=== PATIENT | male | born 1965 | race Caucasian/White ===

== ENCOUNTER 2020-12-30 09:17 | Outpatient (REF) | payer BC, SELFPAY ==
[2020-12-30 10:30] LABS: Creatinine Urine 31.45 mg/dL; Microalbumin Urine < 5.0 mg/L
[2020-12-30 10:31] LABS: Alanine Aminotransferase 47 U/L (0-40); Anion Gap 16 (12-20); Blood Urea Nitrogen 11 mg/dL (9-16); Carbon Dioxide 25 mmol/L (22-29); Chloride 105 mmol/L (96-108); Cholesterol 109 mg/dL; Estimated Glomerular Filt Rate > 60; Glucose Fasting 112 mg/dL (60-99); HDL Cholesterol 33 mg/dL; LDL Cholesterol Calculated 56 mg/dl; Potassium 4.4 mmol/L (3.3-5.1); Sodium 142 mmol/L (135-145); Triglycerides 100 mg/dL
[2020-12-30 10:40] LABS: Estimated Average Glucose 105 mg/dL; Hemoglobin A1c % 5.3 %
== END 2020-12-30 09:18 | disposition home or self-care (01) ==
LOC: HO.10HDL 09:17
PROVIDERS: Absent Provider Internal Medicine Endocrinology, Diabetes & Metabolism; Visit Provider Family Medicine
DX: I10 Essential (primary) hypertension (principal); E78.00 Pure hypercholesterolemia, unspecified; Z79.899 Other long term (current) drug therapy
CPT/HCPCS: 36415; 80051; 80061; 82043; 82550; 82565; 82947; 83036; 84460; 84520

== ENCOUNTER 2021-06-24 08:17 | Outpatient (REF) | payer BC, SELFPAY ==
--- NOTE | ~2021-06-24 | US_ITS ---
EXAMINATION: US RETROPERITONEAL COMPLETE (RENAL) CLINICAL INFORMATION: History of stones. COMPARISON: CT abdomen and pelvis 09/12/2010. TECHNIQUE: Real-time imaging of the kidneys and bladder. FINDINGS: RIGHT KIDNEY: 12.5 x 6.3 x 7.3 cm (SAG x AP x TRV). The kidney is normal in size, contour, and echogenicity. Renal cortical thickness is normal. No focal parenchymal lesions or hydronephrosis. There is an echogenic stone measuring 0.19 x 0.21 x 0.18 cm in mid pole right kidney LEFT KIDNEY: 11.3 x 6.7 x 5.0 cm (SAG x AP x TRV). The kidney is normal in size, contour, and echogenicity. Renal cortical thickness is normal. No calculi or focal parenchymal lesions. No hydronephrosis. BLADDER: Well distended and normal. Bilateral ureteral jets are demonstrated. Prevoid bladder volume is 227 mL. Postvoid bladder volume is 15.4 mL. Prostate volume 35.8 mL. US/US retroperitoneal comp IMPRESSION: Nonobstructive echogenic stone mid pole right kidney. No caliectasis or hydronephrosis in either kidney. Small postvoid residual bladder volume.
== END 2021-06-24 08:18 | disposition home or self-care (01) ==
LOC: HO.HMGCX 08:17
PROVIDERS: PCP Family Medicine; Visit Provider Family Medicine
DX: N20.0 Calculus of kidney (principal)
CPT/HCPCS: 76770

== ENCOUNTER 2021-09-09 09:46 | Outpatient (REF) | payer BC, SELFPAY ==
[2021-09-09 15:15] LABS: Alanine Aminotransferase 44 U/L (0-40); Anion Gap 12 (12-20); Aspartate Amino Transferase 23 U/L (5-37); Blood Urea Nitrogen 12 mg/dL (9-16); Carbon Dioxide 31 mmol/L (22-29); Chloride 103 mmol/L (96-108); Estimated Glomerular Filt Rate > 60; Potassium 4.8 mmol/L (3.3-5.1); Sodium 141 mmol/L (135-145)
== END 2021-09-09 09:47 | disposition home or self-care (01) ==
LOC: HO.10HDL 09:46
PROVIDERS: Absent Provider Internal Medicine Endocrinology, Diabetes & Metabolism; Visit Provider Family Medicine
DX: E78.00 Pure hypercholesterolemia, unspecified (principal); I10 Essential (primary) hypertension
CPT/HCPCS: 36415; 80051; 82550; 82565; 84450; 84460; 84520

== ENCOUNTER 2022-03-18 08:55 | Outpatient (REF) | payer BC, SELFPAY ==
[2022-03-18 10:50] LABS: Estimated Average Glucose 108 mg/dL; Hemoglobin A1c % 5.4 %
[2022-03-18 11:01] LABS: Alanine Aminotransferase 56 U/L (0-40); Anion Gap 13 (12-20); Blood Urea Nitrogen 14 mg/dL (9-16); Carbon Dioxide 26 mmol/L (22-29); Chloride 100 mmol/L (96-108); Estimated Glomerular Filt Rate > 60; Glucose Fasting 104 mg/dL (60-99); Potassium 4.4 mmol/L (3.3-5.1); Sodium 135 mmol/L (135-145)
[2022-03-18 11:27] LABS: Creatinine Urine 13.26 mg/dL; Microalbumin Urine < 5.0 mg/L
== END 2022-03-18 08:56 | disposition home or self-care (01) ==
LOC: HO.10HDL 08:55
PROVIDERS: Visit Provider Family Medicine
DX: I10 Essential (primary) hypertension (principal); E11.9 Type 2 diabetes mellitus without complications; E78.00 Pure hypercholesterolemia, unspecified; Z79.899 Other long term (current) drug therapy
CPT/HCPCS: 36415; 80051; 82043; 82550; 82565; 82947; 83036; 84460; 84520

== ENCOUNTER 2022-09-10 08:32 | Outpatient (REF) | payer BC, SELFPAY ==
[2022-09-10 10:36] LABS: Estimated Average Glucose 114 mg/dL; Hemoglobin A1c % 5.6 %
[2022-09-10 10:40] LABS: Anion Gap 12 (12-20); Blood Urea Nitrogen 14 mg/dL (9-16); Carbon Dioxide 30 mmol/L (22-29); Chloride 102 mmol/L (96-108); Estimated Glomerular Filt Rate > 60; Glucose Fasting 121 mg/dL (60-99); Sodium 139 mmol/L (135-145)
== END 2022-09-10 08:33 | disposition home or self-care (01) ==
LOC: HO.10HDL 08:32
PROVIDERS: Visit Provider Family Medicine
DX: I10 Essential (primary) hypertension (principal); E11.9 Type 2 diabetes mellitus without complications
CPT/HCPCS: 36415; 80051; 82565; 82947; 83036; 84520

== ENCOUNTER 2023-03-15 09:07 | Outpatient (REF) | payer BC, SELFPAY | END 2023-03-15 09:08 | disposition home or self-care (01) | LOC: HO.HMGCLDS 09:07 | PROVIDERS: PCP Family Medicine; Visit Provider Family Medicine | DX: I10 Essential (primary) hypertension (principal) | CPT/HCPCS: 36415; 80051; 82565; 84520 ==

== ENCOUNTER 2023-07-14 07:40 | Outpatient (REF) | payer BC, SELFPAY ==
[2023-07-14 11:45] LABS: Estimated Average Glucose 103 mg/dL; Hemoglobin A1c % 5.2 % (<6.0)
[2023-07-14 11:58] LABS: Alanine Aminotransferase 46 U/L (0-40); Aspartate Amino Transferase 27 U/L (5-37); Cholesterol 111 mg/dL (<200); Glucose Fasting 105 mg/dL (60-99); HDL Cholesterol 32 mg/dL (>40); LDL Cholesterol Calculated 56 mg/dL (<100); Triglycerides 116 mg/dL (<150)
== END 2023-07-14 07:41 | disposition home or self-care (01) ==
LOC: HO.HMGCLDS 07:40
PROVIDERS: PCP Family Medicine; Visit Provider Family Medicine
DX: E11.9 Type 2 diabetes mellitus without complications (principal); E78.00 Pure hypercholesterolemia, unspecified; Z79.899 Other long term (current) drug therapy
CPT/HCPCS: 36415; 80061; 82550; 82947; 83036; 84450; 84460

== ENCOUNTER 2024-03-04 06:42 | Outpatient (REF) | payer BC, SELFPAY ==
[2024-03-04 11:41] LABS: Estimated Average Glucose 108 mg/dL; Hemoglobin A1C 148.5934 umol/L; Hemoglobin A1c % 5.4 % (<6.0)
[2024-03-04 11:45] LABS: Anion Gap 13 (12-20); Blood Urea Nitrogen 13 mg/dL (9-16); Carbon Dioxide 24 mmol/L (22-29); Chloride 105 mmol/L (96-108); Estimated Glomerular Filt Rate > 60; Potassium 4.2 mmol/L (3.3-5.1); Sodium 138 mmol/L (135-145)
[2024-03-04 12:26] LABS: Creatinine Urine 48.77 mg/dL; Microalbumin Urine < 5.0 mg/L
== END 2024-03-04 06:43 | disposition home or self-care (01) ==
LOC: HO.HMGCLDS 06:42
PROVIDERS: PCP Family Medicine; Visit Provider Family Medicine
DX: I10 Essential (primary) hypertension (principal); E11.9 Type 2 diabetes mellitus without complications
CPT/HCPCS: 36415; 80051; 82043; 82565; 82570; 83036; 84520

== ENCOUNTER 2024-05-12 06:20 | Day surgery (SDC) | payer BC, SELFPAY ==
[2024-05-10 12:34] VITALS: BMI 29.6
--- NOTE | 2024-05-10 14:00 | P.CONAN_ITS ---
Documented by User: Aisha Suarez NP 05/10/24 14:01 HPI - Anesthesia Eval Consult details Narrative: 58yo M for Colonoscopy Anesthesia Pre-Procedure Meds Is the patient on any of the following meds?: GLP1/DPP4 and SGLT2 Inhib PMFSH Past Medical History Medical History Skin cancer HTN (hypertension) Renal calculus Diabetes Elevated cholesterol Surgical History Surgical History Hx of eye surgery H/O colonoscopy Social History Social History (Updated 05/10/24 @ 12:34 by Joy Grayson RN) Household Members: Spouse Patient Tobacco Use Status: Never used Tobacco Use of substances other than those prescribed or required for medical reasons: No Are you DNR?: No Advance Directives: No Advance Directives Information Provided: Yes Recently lost weight without trying: No Nutrition Risks: No Nutritional Risk Poor oral hygiene: No Meds Allergies Allergy/AdvReac Type Severity Reaction Status Date / Time No Known Allergies Allergy Verified 05/12/24 06:34 Home Medications ?Medication ?Instructions ?Recorded ?Confirmed ?Last Taken ?Type atorvastatin 10 mg tablet 10 mg PO DAILY 05/10/24 05/12/24 05/12/24 History empagliflozin 10 mg tablet 10 mg PO BEDTIME 05/10/24 05/12/24 05/09/24 History (Jardiance) lisinopril 20 mg tablet 20 mg PO DAILY 05/10/24 05/12/24 05/12/24 History metformin 500 mg tablet 1,000 mg PO BID 05/10/24 05/12/24 05/12/24 History metoprolol succinate 25 mg 25 mg PO BEDTIME 05/10/24 05/12/24 05/12/24 History tablet,extended release 24 hr tirzepatide 5 mg/0.5 mL 0.5 mg subcut QWEEK 05/10/24 05/12/24 05/05/24 History subcutaneous pen injector (Maryjo) Exam Height,Weight and Vital Signs: Height 5 ft 10 in Weight 93.44 kg Assessment and Plan Assessment Anesthesia Assessment: Chart Reviewed Documented by User: Juvencio Kumar MD 05/12/24 07:26 [facility] Past Medical History Medical History Skin cancer HTN (hypertension) Renal calculus Diabetes Elevated cholesterol Family History Family history of problems with anesthesia: No Surgical History Surgical History Hx of eye surgery H/O colonoscopy History of Problems with Anesthesia: No Social History Social History (Updated 05/10/24 @ 12:34 by Joy Grayson RN) Household Members: Spouse Patient Tobacco Use Status: Never used Tobacco Use of substances other than those prescribed or required for medical reasons: No Are you DNR?: No Advance Directives: No Advance Directives Information Provided: Yes Recently lost weight without trying: No Nutrition Risks: No Nutritional Risk Poor oral hygiene: No Meds Allergies Allergy/AdvReac Type Severity Reaction Status Date / Time No Known Allergies Allergy Verified 05/12/24 06:34 Home Medications ?Medication ?Instructions ?Recorded ?Confirmed ?Last Taken ?Type atorvastatin 10 mg tablet 10 mg PO DAILY 05/10/24 05/12/24 05/12/24 History empagliflozin 10 mg tablet 10 mg PO BEDTIME 05/10/24 05/12/24 05/09/24 History (Jardiance) lisinopril 20 mg tablet 20 mg PO DAILY 05/10/24 05/12/24 05/12/24 History metformin 500 mg tablet 1,000 mg PO BID 05/10/24 05/12/24 05/12/24 History metoprolol succinate 25 mg 25 mg PO BEDTIME 05/10/24 05/12/24 05/12/24 History tablet,extended release 24 hr tirzepatide 5 mg/0.5 mL 0.5 mg subcut QWEEK 05/10/24 05/12/24 05/05/24 History subcutaneous pen injector (Gibranunjaro) Exam Airway Mallampati Class: II TM Dist: <=3cm Neck ROM: Full Loose/Missing/Broken Teeth: No Heart: ok Lungs: ok Assessment and Plan Assessment Anesthesia Assessment: Anesthesia Plan Discussed Final Anesthetic Review Family History of Problems with Anesthesia: No History of Problems with Anesthesia: No NPO: Yes ASA Class: II Final Preanesthetic Review: No Changes in Pt Med Stat, Meds/Allgs Chart Reviewed, Consent Obtained/Reviewed and Anes Risks/Benef Reviewed Patient Risk: Intermediate Procedure Risk: Low Anesthetic Plan Anesthetic Plan: MAC: and Agree w/ Assess. and Plan Disposition: Standard PACU
[2024-05-12 06:25] VITALS: BMI 27.3
[2024-05-12 06:46] VITALS: BP 104/73; PULSE 86; RESP 16; TEMP 36.5; O2SAT 96
[2024-05-12] MEDS: Lactated Ringers 1,000 ML 100 ML IVCONT (06:47)
[2024-05-12 06:54] LABS: Glucose, Whole Blood 94 mg/dL (60-115)
--- NOTE | 2024-05-12 07:27 | MHC.SHP ---
Pre-Procedural Eval Section A - 24 Hr Update-Section A only Date of Service: 05/12/24 Section B - Complete if H&P > 30 days Chief Complaint: screening Details of Present Illness: see H&P no changes Relevant Family History (Specify if Yes): No Present Medications: see Short Stay Collaborative assessment Medical History: No relevant PMH History of Previous Operations: Relevant previous surgery/procedure and date(s) Allergies: Allergies Allergy/AdvReac Type Severity Reaction Status Date / Time No Known Allergies Allergy Verified 05/12/24 06:34 Review of Systems Sugical H&P ROS: Negative: Constitution, Cardiovascular, Respiratory, Neurological, Psychiatric, Hem-Onc, Allergic/Immunologic, Gastrointestinal, Genitourinary, Musculoskeletal, Integumentary, Endocrine and Eyes/Ears/Nose/Throat Exam Surgical H&P Exam: Normal: HEENT, Normal: Heart, Normal: Lungs, Normal: Extremities, Normal: Abdomen, Normal: Skin and Normal: Neurological Plan Diagnosis/Plan: Unchanged I have reviewed the history and physical and performed a pertinent physical examination on my patient. No changes have occurred unless specified. Time Spent With Patient Time: Total time managing care of this patient today ____ minutes.
[2024-05-12 08:05] VITALS: BP 85/59; PULSE 91; RESP 18; TEMP 36.4; O2SAT 95
[2024-05-12 08:24] VITALS: BP 97/66; PULSE 90; RESP 16; TEMP 36.5; O2SAT 96
--- NOTE | 2024-05-12 08:34 | P.CONAN_ITS ---
HPI - Anesthesia Eval Consult details Narrative: colon screen [facility] Past Medical History Medical History Skin cancer HTN (hypertension) Renal calculus Diabetes Elevated cholesterol Family History Family history of problems with anesthesia: No Surgical History Surgical History Hx of eye surgery H/O colonoscopy History of Problems with Anesthesia: No Social History Social History Household Members: Spouse Patient Tobacco Use Status: Never used Tobacco Use of substances other than those prescribed or required for medical reasons: No Are you DNR?: No Advance Directives: No Advance Directives Information Provided: Yes Recently lost weight without trying: No Nutrition Risks: No Nutritional Risk Poor oral hygiene: No Meds Allergies Allergy/AdvReac Type Severity Reaction Status Date / Time No Known Allergies Allergy Verified 05/12/24 06:34 Active Medications: Current Medications Lactated Ringer's (Lr) 1,000 mls @ 100 mls/hr IVCONT .Q10H REGINALD Last Admin: 05/12/24 06:47 Dose: 100 mls/hr Home Medications ?Medication ?Instructions ?Recorded ?Confirmed ?Last Taken ?Type atorvastatin 10 mg tablet 10 mg PO DAILY 05/10/24 05/12/24 05/12/24 History empagliflozin 10 mg tablet 10 mg PO BEDTIME 05/10/24 05/12/24 05/09/24 History (Jardiance) lisinopril 20 mg tablet 20 mg PO DAILY 05/10/24 05/12/24 05/12/24 History metformin 500 mg tablet 1,000 mg PO BID 05/10/24 05/12/24 05/12/24 History metoprolol succinate 25 mg 25 mg PO BEDTIME 05/10/24 05/12/24 05/12/24 History tablet,extended release 24 hr tirzepatide 5 mg/0.5 mL 0.5 mg subcut QWEEK 05/10/24 05/12/24 05/05/24 History subcutaneous pen injector (Gibranundomingoro) Exam Height,Weight and Vital Signs: Height 5 ft 10 in Weight 86.183 kg Last Vital Signs Temp 97.7 F 05/12/24 08:24 Pulse 90 05/12/24 08:24 Resp 16 05/12/24 08:24 BP 97/66 05/12/24 08:24 Pulse Ox 96 05/12/24 08:24 O2 Del Method Room Air 05/12/24 08:24 Pertinent Lab Results Pertinent Lab Results: Laboratory Tests 05/12/24 06:49 POC Glucose 94 Airway Mallampati Class: II TM Dist: >3cm Neck ROM: Full Heart: rrr Lungs: cta Assessment and Plan Assessment Anesthesia Assessment: Anesthesia Plan Discussed Final Anesthetic Review Family History of Problems with Anesthesia: No History of Problems with Anesthesia: No NPO: Yes ASA Class: III Final Preanesthetic Review: No Changes in Pt Med Stat, Meds/Allgs Chart Reviewed, Consent Obtained/Reviewed and Anes Risks/Benef Reviewed Patient Risk: Intermediate Procedure Risk: Low Anesthetic Plan Anesthetic Plan: MAC: Disposition: Standard PACU
--- NOTE | 2024-05-12 08:42 | OP_ITS ---
DATE OF SERVICE: 05/12/2024 SURGEON: Denzel Begum MD INDICATIONS: Colon cancer screening and prior history of adenomatous colon polyps. PREOPERATIVE DIAGNOSIS: POSTOPERATIVE DIAGNOSIS: PROCEDURE PERFORMED: Colonoscopy to the terminal ileum. ESTIMATED BLOOD LOSS: COMPLICATIONS: ANESTHESIA: Monitored anesthesia care. ASSISTANTS: SPECIMENS: DESCRIPTION OF PROCEDURE: A history and physical was performed. The risks and benefits of the procedure were explained to the patient and informed consent was obtained. The patient was placed in the left lateral decubitus position. A digital rectal exam was performed and was found to be normal. The Olympus pediatric video colonoscope was introduced into the rectum and advanced to the cecum. The cecum was identified by transillumination, palpation, and identification of the ileocecal valve. Examination was performed and the scope was removed. He tolerated the procedure well and was returned to recovery area in stable condition. FINDINGS: The terminal ileum was examined and appeared normal. The visualized colonic mucosa was normal. The quality of the prep was good. No polyps were identified. There was mild sigmoid diverticulosis. Retroflexed examination was normal. IMPRESSION: Normal colonoscopy. RECOMMENDATIONS: 1. Follow up as needed. 2. Repeat colonoscopy is recommended in 10 years for average-risk individuals. MD AALIYAH Mullen/GHASSAN / [phone]
== END 2024-05-12 08:53 | disposition home or self-care (01) ==
PROVIDERS: PCP Family Medicine; Visit Provider Internal Medicine Gastroenterology
PROC: 0DJD8ZZ Inspection of Lower Intestinal Tract, Via Natural or Artificial Opening Endoscopic (ICD-10-PCS; CPT 45378; principal; 2024-05-12 07:30)
DX: Z12.11 Encounter for screening for malignant neoplasm of colon (principal); Z86.010 Personal history of colon polyps; K57.30 Diverticulosis of large intestine without perforation or abscess without bleeding; I10 Essential (primary) hypertension; E78.5 Hyperlipidemia, unspecified; E11.9 Type 2 diabetes mellitus without complications; N20.0 Calculus of kidney; Z85.828 Personal history of other malignant neoplasm of skin; Z79.84 Long term (current) use of oral hypoglycemic drugs; Z79.899 Other long term (current) drug therapy; Z98.890 Other specified postprocedural states
CPT/HCPCS: 45378; 82947; J2704

== ENCOUNTER 2024-11-04 07:18 | Outpatient (REF) | payer BC, SELFPAY ==
--- OUTSIDE RECORDS SUMMARY | 2024-11-04 07:20 | XMS_ITS ---
Author Organization [facility] Address [address] [place] [address] Care Team Providers Care Banana Loader Name Role Phone Aayush Parekh MD Primary Care Provider Unavailab Denzel Villa Jr Unavailable REASON FOR VISIT screening Encounters Encounter Location Date Provider Diagnosis [facility] [address] [place] [phone] 05/12/2024 Denzel Begum Jr Colon cancer screening Z12.11 ASSESSMENTS Encounter Date Diagnosis Assessment Notes Treatment Notes Treatment Clinical Notes 05/12/2024 Colon cancer screening (ICD-10 - Z12.11) PLAN OF TREATMENT No Information
--- OUTSIDE RECORDS SUMMARY | 2024-11-04 07:21 | XMS_ITS | Continuity of Care Document ---
Author Organization [facility] [address] [facility] [address] [place] [address] Phone [phone] Care Team Providers Care Cellophane Tester Name Role Phone Aayush Parekh M.D. Care Team Information Receive r [phone] Problems Active Problems Provider Date Type 2 diabetes mellitus Raul Woodard M.D. Onset: 07/02/2022 Hyperlipidemia Raul Woodard M.D. Onset: 0 01/13/2024 Essential hypertension Raul Woodard M.D. O nset: 05/29/2024 Social History Type Date Description Comments Sex Unknown Lives With Spouse Tobacco Use Start: Unknown Never Smoked Cigarettes Smoking Status Reviewed: 12/31/22 Never Smoked Cigaret brandyn ETOH Use Never used alcohol Allergies and adverse reactions Description No Known Drug Allergies Medications Active Medications SIG Qnty Indications Order ing Provider Date Kjsqvpac8ra/0.5ML Solution Auto-Inject Inject 1 Prefilled Pen Under The Skin Every Week 2ml E11.9 Raul Woodard M.D. 02/04/2024 Metoprolol Succinate ER25mg Tablets ER 24HR 1 by mouth every day Aayush Parekh M.D. Illywzyar80iz Tablets Take 1 Tablet By Mouth Every Day 90tabs Raul Woodard M.D. Vqwdhnofdh69nb Tablets 1 by mouth every day Aayush Parekh M.D. Atorvastatin Ljrkhnn90ba Tablets 1 by mouth every day 90tabs Aayush Parekh M.D. History Medications Mounjaro2.5mg/0.5ML Solution Pen-Inject inject 2.5mg subcutaneously once a week as directed for 4 weeks 2ml Raul Woodard M.D. 01/13/2024 - 02/04/2024 Vital Signs Date Vital Result Comment 09/14/2024 8:23am BP Systolic 110 mmHg BP Diastolic 70 mmHg Heart Rate 72 /min Height 69 inches 5'9 Weight 204.25 lb BMI (Body Mass Index) 30.2 kg/m2 Results Test Acquired Date Facility Test Result H/L Range N ote Laboratory test finding 09/14/2024 Inhouse Glucose Fingerstick 122 Hemoglobin A1c 5.6% Laboratory test finding 05/29/2024 Inhouse Glucose Fingerstick 115 Laboratory test finding 01/13/2024 Inhouse Hemoglobin A1c 6.5% Glucose Fingerstick 133 Laboratory test finding 07/08/2023 Inhouse Hemoglobin A1c 5.6% Glucose Fingerstick 110 Laboratory test finding 12/31/2022 Inhouse Hemoglobin A1c 6.5% Glucose Fingerstick 128 Laboratory test finding 07/02/2022 Inhouse Hemoglobin A1c 6.2% Glucose Fingerstick 123 Medical Devices Description No Information Available Encounters Type Date Location Provider Dx Diagnosis Office Visit 09/14/2024 8:00a Main Office Raul Woodard M.D. E11.9 Type 2 diabetes mellitus without complications E78.5 Hyperlipidemia, unsp ecified I10 Essential (primary) hypertension Assessments Date Code Description Provider 09/14/2024 E11.9 Type 2 diabetes mellitus without complications Raul Woodard M.D. 09/14/2024 E78.5 Hyperlipidemia Raul noble M.D. 09/14/2024 I10 Hypertensive disorder Raul crum M.D. Plan of Treatment Future Appointment(s):* 01/25/2025 8:30 am - Raul Woodard M.D. at Main Office 01/13/2024 - Raul Woodard M.D.* E11.9 Type 2 diabetes mellitus without complications * I10 Hypertensive disorder * E78.5 Hyperlipidemia * Functional Status Description No Information Available Mental Status Description No Information Available Referrals Description No Information Available
--- OUTSIDE RECORDS SUMMARY | 2024-11-04 07:21 | XMS_ITS | Patient Health Record ---
Author Organization [facility] Address [address] [place] [address] Care Team Providers Care Tire Retreader Name Role Phone Iglesia NOE, Aayush Primary Care Provider Unavailab Denzel Villa Jr Unavailable [phone] ALLERGIES No Known Allergies RESULTS Component Value Reference Range Notes Glucose, Whole Blood Reviewed date:05/12/2024 01:28:38 PM Interpretation: Performing Lab:[facility], [address] [place] [phone] Notes/Report: Glucose, Whole Blood 94 60-115 mg/dL METER # : [id number] REASON FOR REFERRAL No Information MEDICATIONS Medication SIG (Take, Route, Fr equency, Duration) Notes Start Date End Date Status metFORMIN HCl Active Lisinopril Active CoQ-10 Active Lipitor Active Metoprolol Tartrate Active IMMUNIZATIONS Vaccine Route Administration Date Status Comme nts Influenza Unknown 05/14/2018 Administered Influenza Unknown 06/29/2023 Administered SOCIAL HISTORY Tobacco Use: Social History Observation Description Date Details (start date - stop date) Never Smoker NA - NA Sex Assigned At : Social History Observation Description Sex Assigned At Unknown Tobacco Use/Smoking Question Answer Notes Patient is a nonsmoker Alcohol Screen Question Answer Notes Did you have a drink containing alcohol in the p ast year? 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 drugs (Z79.84) Active confirmed 143393800728996 VITAL SIGNS Temperature 97.3 degrees Fahrenheit 01/26/2024 Blood pressure diastolic 00 mm Hg 01/26/2024 Height 70 in 01/26/2024 Blood pressure systolic 000 mm Hg 01/26/2024 Weight 206 lb 4 oz lbs 01/26/2024 BMI 29.59 kg/m2 01/26/2024 Encounters Encounter Location Date Provider Diagnosis [facility] [address] [place], [place] [phone] 05/12/2024 Denzel Begum Jr Colon cancer screening Z12.11 [facility] [address] [place] [address] 01/26/2024 Denzel Begum Jr Colon cancer screening Z12.11 ; Encounter for other preprocedural examination Z01.818 ; Personal history of colonic polyps Z86.010 and [facility] (current) use of oral hypoglycemic drugs Z79.84 ASSESSMENTS Encounter Date Diagnosis Assessment Notes Treatment Notes Treatment Clinical Notes 05/12/2024 Colon cancer screening (ICD-10 - Z12.11) 01/26/2024 Colon cancer screening (ICD-10 - Z12.11) Colonoscopy material was printed 01/26/2024 Encounter for other preprocedural examination (ICD-10 - Z01.818) 01/26/2024 Personal history of colonic polyps (ICD-10 - Z86.010) 01/26/2024 termite exterminator (current) use of oral hypoglycemic drugs (ICD-10 - Z79.84) PLAN OF TREATMENT Future Test Test Name Order Date COLONOSCOPY 07/14/2018 COLONOSCOPY 01/26/2024 Insurance Providers Payer Name Payer Address Payer Phone Subscriber Number Group Number Insured Name Patient Relationship to Insured Coverage Start Date Coverage End Date [facility] [id number] [place], [place] [id number] JAYY DUNBAR Self - patient is the insured MEDICAL (GENERAL) HISTORY Medical History History ICD Code Hyperlipidemia Diabetes mellitus type 2 Nephrolithiasis Hypertension Colonoscopy 11/29, tubular adenoma, five- year followup Surgical History Surgery Date(Month/Year) skin cancer multiple times eye surgery when child
--- OUTSIDE RECORDS SUMMARY | 2024-11-04 07:21 | XMS_ITS ---
Author Organization [facility] Address [address] [place] [address] Care Team Providers Care Gang Drill Press Operator Name Role Phone Aayush Parekh MD Primary Care Provider UnavailDenzel Hobson Jr Unavailable ALLERGIES No Known Allergies REASON FOR VISIT Patient presents today for a recall colonoscopy MEDICATIONS Medication SIG (Take, Route, Fr equency, Duration) Notes Start Date End Date Status metFORMIN HCl Active CoQ-10 Active Lipitor Active Metoprolol Tartrate Active Lisinopril Active SOCIAL HISTORY Tobacco Use: Social History Observation [...] W/U Status Risk SNOMED Code Notes Problem Personal history of colonic polyps (Z86.010) Active confirmed 633114935 Problem long-term (current) use of oral hypoglycemic drugs (Z79.84) Active confirmed [id number] VITAL SIGNS BMI 29.59 kg/m2 01/26/2024 Blood pressure systolic 000 mm Hg 01/26/20 24 Blood pressure diastolic 00 mm Hg 024 Height 70 in 01/26/2024 Temperature 97.3 degrees Fahrenheit 01/26/20 24 Weight 206 lb 4 oz lbs 01/26/2024 Encounters Encounter Location Date Provider Diagnosis [facility] [address] [place] [address] 01/26/2024 Denzel Kel Hernanedz Colon cancer screening Z12.11 ; Encounter for other preprocedural examination Z01.818 ; Personal history of colonic polyps Z86.010 and long-term (current) use of oral hypoglycemic drugs Z79.84 ASSESSMENTS Encounter Date Diagnosis Assessment Notes Treatment Notes Treatment Clinical Notes 01/26/2024 Colon cancer screening (ICD-10 - Z12.11) Colonoscopy material was printed 01/26/2024 Encounter for other preprocedural examination (ICD-10 - Z01.818) 01/26/2024 Personal history of colonic polyps (ICD-10 - Z86.010) 01/26/2024 long-term (current) use of oral hypoglycemic drugs (ICD-10 - Z79.84) PLAN OF TREATMENT Treatment Notes Assessment Notes Colon cancer screening Colonoscopy mater ial was printed Future Test Test Name Order Date COLONOSCOPY 01/26/2024 Next Appt Details Follow Up: 1 Year, Reason: Progress Notes * Examination Category Sub-Category Detail Notes General Examination GENERAL APPEARANCE: in no ac tyler distress HEAD: normocephalic EYES: sclera non-icteric NECK/THYROID: no lymphadenopathy HEART: S1, S2 normal, no mu rmurs CHEST: normal shape and exp ansion LUNGS: clear to auscultatio n bilaterally ABDOMEN: soft, nontender, non distended, bowel sounds present, no organomegaly SKIN: anicteric EXTREMITIES: no clubbing, cyanosi s, or edema PSYCH: cognitive function i ntact ORAL CAVITY: mucosa moist
[2024-11-04 11:38] LABS: Estimated Average Glucose 103 mg/dL; Hemoglobin A1C 142.2127 umol/L; Hemoglobin A1c % 5.2 % (<6.0); Total Hemoglobin (HGBA1C) 4231.0029 umol/L
[2024-11-04 11:48] LABS: Alanine Aminotransferase 67 U/L (0-40); Anion Gap 14 (12-20); Aspartate Amino Transferase 39 U/L (5-37); Blood Urea Nitrogen 15 mg/dL (9-16); Carbon Dioxide 24 mmol/L (22-29); Chloride 106 mmol/L (96-108); Cholesterol 107 mg/dL (<200); Estimated Glomerular Filt Rate > 60; Glucose Fasting 117 mg/dL (60-99); HDL Cholesterol 30 mg/dL (>40); LDL Cholesterol Calculated 50 mg/dL (<100); Potassium 4.4 mmol/L (3.3-5.1); Sodium 140 mmol/L (135-145); Triglycerides 136 mg/dL (<150)
[2024-11-04 12:00] LABS: Creatinine Urine 56.97 mg/dL; Microalbumin Urine < 5.0 mg/L
== END 2024-11-04 07:19 | disposition home or self-care (01) ==
LOC: HO.HMGCLDS 07:18
PROVIDERS: PCP Family Medicine; Visit Provider Family Medicine
DX: E11.9 Type 2 diabetes mellitus without complications (principal); E78.00 Pure hypercholesterolemia, unspecified; I10 Essential (primary) hypertension
CPT/HCPCS: 36415; 80051; 80061; 82043; 82550; 82565; 82570; 82947; 83036; 84450; 84460; 84520

== ENCOUNTER 2025-07-09 07:54 | Outpatient (AMB) | payer BC, SELFPAY ==
--- OUTSIDE RECORDS SUMMARY | 2024-05-12 03:30 | XMS_ITS ---
Author Organization [facility] Address [address] [place] [address] Care Team Providers Care Atomizer Assembler Name Role Phone Iglesia (RETIRED) Aayush NOE Primary Care Provider Denzel Hackett Jr [phone] REASON FOR VISIT screening Encounters Encounter Location Date Provider Diagnosis [facility] [address] [place] [phone] 05/12/2024 Denzel Begum Jr Colon cancer screening Z12.11 Assessments Encounter Date Diagnosis (ICD Code) Assessment Notes Treatment Notes Treatment Clinical Notes Section Notes 05/12/2024 Colon cancer screening (ICD-10 - Z12.11) Plan Of Treatment No Information Progress Notes * JAYY DUNBAR PDOB:1964 (59 yo M)Acc No.[id number]:05/12/2024 COLON WITH MAC Patient: Orlin JAYY ROONEY Provider: Alexa Begum MD :1965 A ge:58 Y S ex:Male Date:05/12/2024 Address:[facility] [address] [place] [facility] Pcp:Aayush Parekh (RETIRED) MD Subjective: * Chief Complaints: * 1 . Screening. * Medical History: Objective: * Vitals: Assessment: * Assessment: 1. C olon cancer screening - Z12.11 (Primary) Plan: * Treatment: * Procedure Codes: 4 5378 DIAGNOSTIC COLONOSCOPY * * The named appointment provid er may or may not be the originator of this progress note, and it is not deemed complete until electronically signed by the appointment provider. Sign off status: Pending * Provider: Alexa Begum MD Date: 0 05/12/2024 Generated for Debbie pena/Yazmin/Norma on: 07:56 AM EDT
--- NOTE | 2025-07-09 07:57 | MHC.PC.OV ---
Vital Signs 07/09/25 08:02 Height 5 ft 9.29 in Weight 97.069 kg BMI 31.3 BP 126/76 Blood Pressure Location Lt brachial Position Sitting Respiration 18 Pulse 85 Pulse Source Pulse Oximeter Temp 97.5 F Temp Source Temporal Artery Scan Pulse Oximetry (%) 98 Oxygen Delivery Method Room Air Intake Visit Reasons: 4 MO F/UP - CHEUNG PT - see comments Oncology Coordinator Required: No Accompanied by: Self / Same As Patient Allergies No Known Allergies Allergy (Verified 07/09/25 07:58) Tobacco use date assessed: 07/09/25 Dental Screening Dental Screen Date: 07/09/25 Did you have a dental visit in the last 12 months?: Yes Did you have a dental problem in the last 6 months where you did not have access to dental care?: No Was dental information given to patient?: Patient has dentist HPI HPI Comments History of Present Illness Details 59-year-old male with history of hypertension, type 2 diabetes, hypercholesterolemia, Chaudhary, varicose veins, obesity presenting to the office today for management of chronic conditions and to establish care. Type 2 diabetes-last hemoglobin A1c 5.2%. On Jardiance [address] Dr Charis handy, [facility] Hypertension-blood pressure in the office in 126/76. On lisinopril 20 mg daily and metoprolol 25 mg ER Hyperlipidemia-on atorvastatin Chaudhary-AST 39, ALC 67 Concerns: none Health maintenance: LAST COLONOSCOPY 04/2024, 10 YEAR FOLLOW-UP. LORENA ROS: General: No fevers, malaise, unintentional weight loss HEENT: No blurred vision, diplopia. No sore throat, nasal congestion, rhinorrhea, sinus pain, ear pain Cardiovascular: No chest pain, palpitations, or leg edema Respiratory: No shortness of breath, wheezing, cough GI: No abdominal pain, nausea, vomiting, diarrhea, constipation, melena, hematochezia : No dysuria, hematuria, increased urinary frequency, decreased urinary output MSK: No myalgia, back pain Neuro: No headaches, weakness, paresthesias Skin: No rashes or lesions EXAM: Constitutional - Awake and Alert, No apparent distress Eyes - PERRL Cardiovascular - S1S2, RRR, No edema Respiratory - Normal lung expansion, Normal respiratory effort, No respiratory distress, CTA bilaterally Extremities - no calf tenderness bilaterally, no swelling Skin - Warm/Dry Neurological - Alert & oriented x3 Psychological - Appropriate affect PFSH Medical History (Updated 07/09/25 @ 08:18 by LEOLA Rodríguez) Obesity CHAUDHARY (nonalcoholic steatohepatitis) Skin cancer HTN (hypertension) Renal calculus Diabetes Elevated cholesterol Surgical History (Updated 03/29/25 @ 15:32 by Ning Contreras) Hx of eye surgery H/O colonoscopy (~05/12/24) Social History Household Members: Spouse Housing: House Patient Tobacco Use Status: Never used Tobacco e-Cigarette/Vaping Use: Never Used service: No Current occupational status: employed 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 Questionnaire AUDIT C Alcohol Use Questionnaire (AUDIT-C) 1. How often do you have a drink containing alcohol?: Never 3. How often do you have six or more drinks on one occasion?: Never Total Score: 0 Physical exam (Primary Care) Vital Signs: Last Vital Signs Temp 97.5 F 07/09/25 08:02 Pulse 85 07/09/25 08:02 Resp 18 07/09/25 08:02 BP 126/76 07/09/25 08:02 Pulse Ox 98 07/09/25 08:02 Oxygen Delivery Method Room Air 07/09/25 08:02 BMI result Body Mass Index 31.3 Tobacco/Smoking Status: Tobacco use Status Tobacco use date assessed 07/09/25 07/09/25 08:00 Patient Tobacco Use Status Never used Tobacco 07/09/25 08:00 e-Cigarette/Vaping Use Never Used 07/09/25 08:05 Coding Level of Care Code New Pt Level 4 (10901) Complex EM visit Add On G2211 Diagnoses HTN (hypertension) I10 Elevated cholesterol E78.00 Diabetes E11.9 CHAUDHARY (nonalcoholic steatohepatitis) K75.81 Obesity E66.9 Assessment & Plan Assessment & Plan (1) HTN (hypertension): Code(s): I10 - Essential (primary) hypertension Category: Medical Plan: Controlled. Continue Toprol and lisinopril. Low-sodium diet (2) Elevated cholesterol: Code(s): E78.00 - Pure hypercholesterolemia, unspecified Category: Medical Plan: Lipid panel ordered. Continue atorvastatin. Diet low in saturated fats foods. (3) Diabetes: Code(s): E11.9 - Type 2 diabetes mellitus without complications Category: Medical Plan: Hemoglobin A1c ordered. Microalbumin urine screen ordered. Previously well-controlled. Continue following with endocrinology. Continue tirzepatide and Jardiance. Diabetic diet. Continue with annual eye exams (4) CHAUDHARY (nonalcoholic steatohepatitis): Code(s): K75.81 - Nonalcoholic steatohepatitis (CHAUDHARY) Category: Medical Plan: Liver panel ordered. (5) Obesity: Code(s): E66.9 - Obesity, unspecified Category: Medical Plan: Commended on weight loss efforts thus far. Continues to appetite. Healthy diet with calorie deficit in emphasis on protein, fruits, vegetables. Recommend monitor intensity exercise for at least 100 minutes weekly Plan Follow-up in the 6 months. Labs to be completed today and several days prior to next appointment Orders: Orders Basic Metabolic Panel 6 Months E11.9 - Type 2 diabetes mellitus without complications, E78.00 - Pure hypercholesterolemia, unspecified, I10 - Essential (primary) hypertension Hemoglobin A1c 6 Months E11.9 - Type 2 diabetes mellitus without complications, E78.00 - Pure hypercholesterolemia, unspecified, I10 - Essential (primary) hypertension Lipid Panel 6 Months E11.9 - Type 2 diabetes mellitus without complications, E78.00 - Pure hypercholesterolemia, unspecified, I10 - Essential (primary) hypertension Liver Panel 6 Months E11.9 - Type 2 diabetes mellitus without complications, E78.00 - Pure hypercholesterolemia, unspecified, I10 - Essential (primary) hypertension Basic Metabolic Panel Today E11.9 - Type 2 diabetes mellitus without complications, E78.00 - Pure hypercholesterolemia, unspecified, I10 - Essential (primary) hypertension, K75.81 - Nonalcoholic steatohepatitis (CHAUDHARY) Complete Blood Count Auto Diff Today E11.9 - Type 2 diabetes mellitus without complications, E78.00 - Pure hypercholesterolemia, unspecified, I10 - Essential (primary) hypertension, K75.81 - Nonalcoholic steatohepatitis (CHAUDHARY) Hemoglobin A1c Today E11.9 - Type 2 diabetes mellitus without complications, E78.00 - Pure hypercholesterolemia, unspecified, I10 - Essential (primary) hypertension, K75.81 - Nonalcoholic steatohepatitis (CHAUDHARY) Lipid Panel Today E11.9 - Type 2 diabetes mellitus without complications, E78.00 - Pure hypercholesterolemia, unspecified, I10 - Essential (primary) hypertension, K75.81 - Nonalcoholic steatohepatitis (CHAUDHARY) Liver Panel Today E11.9 - Type 2 diabetes mellitus without complications, E78.00 - Pure hypercholesterolemia, unspecified, I10 - Essential (primary) hypertension, K75.81 - Nonalcoholic steatohepatitis (CHAUDHARY) Microalbumin, Random (w Creat) Today E11.9 - Type 2 diabetes mellitus without complications, E78.00 - Pure hypercholesterolemia, unspecified, I10 - Essential (primary) hypertension, K75.81 - Nonalcoholic steatohepatitis (CHAUDHARY) Prostate Specific Antigen Today E11.9 - Type 2 diabetes mellitus without complications, E78.00 - Pure hypercholesterolemia, unspecified, I10 - Essential (primary) hypertension, K75.81 - Nonalcoholic steatohepatitis (CHAUDHARY)
--- OUTSIDE RECORDS SUMMARY | 2025-07-09 07:57 | XMS_ITS ---
Author Organization Unknown ENCOUNTERS Encounter Performer Location Date Diagnosis Diagnosis Status Pre Admit [address] [phone] [address] [phone] ANGELES *Note: Encounters from your own facility or health system may be excluded. Allergies, Adverse Reactions, Alerts Allergen Type Severity Identification Date Medications Name Date Quantity Days Supplied GPI Number
--- OUTSIDE RECORDS SUMMARY | 2025-07-09 07:57 | XMS_ITS | Patient Health Record ---
Author Organization [facility] Address [address] [place] [address] Care Team Providers Care Community Association Manager Name Role Phone Iglesia (RETIRED) Aayush NOE Primary Care Provider Unavailable Denzel Begum Jr Unavailable [phone] Allergies No Known Allergies Reason For Referral No Information Medications Medication SIG (Take, Route, Fr equency, Duration) Notes Start Date End Date Status metFORMIN HCl Active Lisinopril Active CoQ-10 Active Lipitor Active Metoprolol Tartrate Active Immunizations Vaccine Route Administration Date Status Comme nts Influenza Unknown 05/14/2018 Administered Influenza Unknown 06/29/2023 Administered Social History Tobacco Use: Social History Observation Description Date Details (start date - stop date) Never Smoker NA - NA Tobacco Use/Smoking Question Answer Notes Patient is a nonsmoker Alcohol Screen Question Answer Notes Did you have a drink containing alcohol in the p ast year? 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 (Z79.84) Active confirmed Plan Of Treatment Future Test Test Name Order Date COLONOSCOPY 07/14/2018 COLONOSCOPY 01/26/2024 Insurance Providers Payer Name Payer Address Payer Phone Subscriber Number Group Number Insured Name Patient Relationship to Insured Coverage Start Date Coverage End Date [facility] [address] [place], [place] [id number] JAYY DUNBAR Self - patient is the insured Medical (General) History Medical History History ICD Code Hyperlipidemia Diabetes mellitus type 2 Nephrolithiasis Hypertension Colonoscopy 11/29, tubular adenoma, five- year followup Surgical History Surgery Date(Month/Year) skin cancer multiple times eye surgery when child
--- OUTSIDE RECORDS SUMMARY | 2025-07-09 07:57 | XMS_ITS | Continuity of Care Document ---
Author Organization [facility] [address] [place] [address] Phone [phone] Care Team Providers Care Levee Superintendent Name Role Phone Aayush Parekh M.D. Care Team Information Receive r [phone] Problems Active Problems Provider Date Type 2 diabetes mellitus Raul Woodard M.D. Onset: 07/02/2022 Hyperlipidemia Raul Woodard M.D. Onset: 0 01/13/2024 Essential hypertension Raul Woodard M.D. O nset: 05/29/2024 Social History Type Date Description Comments Sex Male Sex Unknown Lives With Spouse Tobacco Use Start: Unknown Never Smoked Cigarettes ETOH Use Never used alcohol Allergies and adverse reactions Description No Known Drug Allergies Medications Active Medications SIG Qnty Indications Order ing Provider Date Mounjaro7.5mg/0.5ML Solution Auto-Inject Inject 1 Prefilled Pen Under The Skin Every Week 2ml E11.9 Raul Woodard M.D. 07/02/2025 Metoprolol Succinate ER25mg Tablets ER 24HR 1 by mouth every day Aayush Parekh M.D. Ckdhosxwz51fs Tablets Take 1 Tablet By Mouth Every Day 90tabs Raul Woodard M.D. Ohgqvavfuw85gc Tablets 1 by mouth every day Aayush Parekh M.D. Atorvastatin Aelhovr10wt Tablets 1 by mouth every day 90tabs Aayush Parekh M.D. Vital Signs Date Vital Result Comment 07/02/2025 8:46am BP Systolic 100 mmHg BP Diastolic 60 mmHg Heart Rate 72 /min Height 69 inches 5'9 Weight 212.38 lb BMI (Body Mass Index) 31.4 kg/m2 Results Test Acquired Date Facility Test Result H/L Range N ote Glucose Fingerstick 07/02/2025 Inhouse Glucose Fingerstick 195 Hemoglobin A1c 07/02/2025 Inhouse Hemoglobin A1c 6.3 Glucose Fingerstick 01/25/2025 Inhouse Glucose Fingerstick 103 Hemoglobin A1c 01/25/2025 Inhouse Hemoglobin A1c 5.6% Glucose Fingerstick 09/14/2024 Inhouse Glucose Fingerstick 122 Hemoglobin A1c 09/14/2024 Inhouse Hemoglobin A1c 5.6% Glucose Fingerstick 05/29/2024 Inhouse Glucose Fingerstick 115 Hemoglobin A1c 01/13/2024 Inhouse Hemoglobin A1c 6.5% Glucose Fingerstick 01/13/2024 Inhouse Glucose Fingerstick 133 Hemoglobin A1c 07/08/2023 Inhouse Hemoglobin A1c 5.6% Glucose Fingerstick 07/08/2023 Inhouse Glucose Fingerstick 110 Hemoglobin A1c 12/31/2022 Inhouse Hemoglobin A1c 6.5% Glucose Fingerstick 12/31/2022 Inhouse Glucose Fingerstick 128 Hemoglobin A1c 07/02/2022 Inhouse Hemoglobin A1c 6.2% Glucose Fingerstick 07/02/2022 Inhouse Glucose Fingerstick 123 Medical Devices Description No Information Available Encounters Type Date Location Provider Dx Diagnosis Office Visit 07/02/2025 8:45a Main Office Raul Woodard M.D. E11.9 Type 2 diabetes mellitus without complications Assessments Date Code Description Provider 07/02/2025 E11.9 Type 2 diabetes mellitus without complications Raul Woodard M.D. Plan of Treatment Future Appointment(s):* 12/06/2025 8:30 am - Raul Woodard M.D. at Main Office 01/13/2024 - Raul Woodard M.D.* E11.9 Type 2 diabetes mellitus without complications * I10 Hypertensive disorder * E78.5 Hyperlipidemia * Functional Status Description No Information Available Mental Status Description No Information Available Referrals Description No Information Available
[2025-07-09 08:02] VITALS: BP 126/76; PULSE 85; RESP 18; TEMP 36.4; O2SAT 98; BMI 31.3
== END 2025-07-09 08:21 | disposition home or self-care (01) ==
LOC: HO.HMCHD 07:54
PROVIDERS: PCP Family Medicine; Visit Provider Physician Assistant
DX: I10 Essential (primary) hypertension (principal); E78.00 Pure hypercholesterolemia, unspecified; E11.9 Type 2 diabetes mellitus without complications; K75.81 Nonalcoholic steatohepatitis (NASH); E66.9 Obesity, unspecified

== ENCOUNTER 2025-07-09 08:23 | Outpatient (REF) | payer BC, SELFPAY ==
[2025-07-09 10:38] LABS: MANUAL DIFF FLAG NO
[2025-07-09 10:43] LABS: Hematocrit 46.7 % (42.0-52.0); Hemoglobin 15.8 g/dl (14.0-18.0); Imm Gran Abs Auto 0.03 X10*3/uL (0.00-0.03); Imm Gran Pct Auto 0.4 % (0.0-0.4); Lymphocytes Absolute Auto 1.6 X10*3/uL (1.2-4.9); Mean Corpuscular HGB Conc 33.8 g/dl (31.0-36.0); Mean Corpuscular Hemoglobin 30.4 pg (27.0-33.0); Mean Corpuscular Volume 90.0 fL (80.0-98.0); NRBC Abs Auto 0.000 X10*3/uL (0.0-0.012); NRBC Pct Auto 0.0 /100WBC (0.0-0.2); Platelet Count 224 X10*3/uL (160-400); Red Blood Count 5.19 X10*6/uL (4.60-5.80); White Blood Count 7.1 X10*3/uL (4.8-10.8)
[2025-07-09 11:15] LABS: Alanine Aminotransferase 73 U/L (0-40); Albumin Level 4.4 g/dL (3.5-5.0); Alkaline Phosphatase 57 U/L (39-117); Anion Gap 11 (12-20); Aspartate Amino Transferase 37 U/L (5-37); Blood Urea Nitrogen 9 mg/dL (9-16); Calcium 9.2 mg/dL (8.4-10.2); Carbon Dioxide 25 mmol/L (22-29); Chloride 110 mmol/L (96-108); Cholesterol 121 mg/dL (<200); Estimated Glomerular Filt Rate > 60; HDL Cholesterol 30 mg/dL (>40); Potassium 4.3 mmol/L (3.3-5.1); Sodium 142 mmol/L (135-145); Total Protein 7.6 g/dL (6.5-8.0); Triglycerides 159 mg/dL (<150)
[2025-07-09 11:23] LABS: Prostate Specific Antigen 0.49 ng/mL (<0.05-4.0)
== END 2025-07-09 08:24 | disposition home or self-care (01) ==
LOC: HO.10HDL 08:23
PROVIDERS: Visit Provider Physician Assistant
DX: Z12.5 Encounter for screening for malignant neoplasm of prostate (principal); I10 Essential (primary) hypertension; K75.81 Nonalcoholic steatohepatitis (NASH); E78.00 Pure hypercholesterolemia, unspecified; E11.9 Type 2 diabetes mellitus without complications
CPT/HCPCS: 36415; 80048; 80061; 80076; 82043; 82570; 83036; 84153; 85025